=== PATIENT | female | born 1980 | race Caucasian/White ===

== ENCOUNTER 2021-04-25 10:04 | Outpatient (CLI) | payer OTHER | END 2021-04-25 10:05 | disposition home or self-care (01) | LOC: CSHCT 10:04 | PROVIDERS: ATTEND Physician Assistant | DX: R10.31 Right lower quadrant pain (principal); R16.0 Hepatomegaly, not elsewhere classified; Z90.49 Acquired absence of other specified parts of digestive tract; Z98.890 Other specified postprocedural states; K57.31 Diverticulosis of large intestine without perforation or abscess with bleeding | CPT/HCPCS: 74177 ==